=== PATIENT | female | born 1995 | race Asian ===

== ENCOUNTER 2019-03-15 16:59 | Inpatient (IN) | payer OTHER ==
[2019-03-15 17:39] LABS: Urine Appearance Clear; Urine Bacteria 1+ (Absent); Urine Bilirubin Negative (Negative); Urine Blood 2+ (Negative); Urine Color Straw; Urine Glucose Negative (Negative); Urine Ketones 1+ (Negative); Urine Nitrite Negative (Negative); Urine Protein Negative (Negative); Urine Red Blood Cell Trace(0-2/hpf) (Absent); Urine Specific Gravity 1.003 (1.010-1.030); Urine Squamous Epithelial Cell Present (Absent); Urine Urobilinogen Negative (Negative); Urine White Blood Cell Absent (Absent)
[2019-03-15 17:45] LABS: ABS Monocytes 0.4 10^3/ul (0-0.8); ABS Neutrophils 5.6 10^3/ul (1.5-7.7); Eosinophil % 0.4 %; Hematocrit 37 % (35-47); Hemoglobin 12.6 g/dL (12.0-16.0); Lymphocyte % 24.7 %; Mean Corpuscular HGB Conc 34 g/dL (31-36); Mean Corpuscular Hemoglobin 30 pg (27-31); Mean Corpuscular Volume 88 fL (80-97); Mean Platelet Volume 7.3 fL (7.4-10.4); Nucleated Red Blood Cells % 0.1; Platelet Count 291 10^3/uL (150-450); Red Cell Distribution Width 13 % (10-15); White Blood Count 8.1 10^3/uL (3.5-10.8)
--- NOTE | 2019-03-15 17:51 | ED ---
Psychiatric Complaint - HPI Summary HPI Summary: This pt is a 24 y/o female presenting to [facility] c/o worsening depression. Pt reports she has felt suicidal for the past 14 years. In the past she has had suicidal attempts by cutting her wrists, the last time was 3 weeks ago. She denies cutting today. Pt saw her therapist today and had a concern for her worsening depression and he referred her to the ED. Pt takes 20 mg prozac and hydroxyzine. Pt also notes she has hx of binging and purging. She states she has been seeing blood in her stools for many years, which was "more intense" on 03/09/19. Since then she notes she has been having diarrhea, dark to green in color. She has hx of IBS. Pt also saw her PCP and was concerned about her GI symptoms and thinks she may need another endoscopy in the future. Pt had an endoscopy a couple of years ago because her mother has hx of H. pylori and pt was having bloody stools then as well. Patient was told her abdomen looked inflamed. Father with bipolar and sister with depression and anxiety. - History Of Current Complaint Time Seen by Provider: 03/15/19 17:11 Hx Obtained From: Patient Onset/Duration: Lasting Days, Still Present Timing: Days Severity Currently: Moderate Character: Depressed Aggravating Factor(s): Nothing Alleviating Factor(s): Nothing Related History: Positive For: Prior Psychiatric Issues Has Suicidal: Reports: Thoughts, Has Prior Attempt(s). Denies: With A Plan Has Homicidal: Denies: Thoughts, With A Plan - Allergies/Home Medications Home Medications: Home Medications FLUoxetine CAP* [PROzac CAP*] 20 mg PO DAILY 03/15/19 [History Confirmed ] hydrOXYzine HCL TAB* [Atarax 10 MG TAB*] 10 mg PO BID PRN 03/15/19 [History Confirmed 03/15/19] PMH/Surg Hx/FS Hx/Imm Hx GI History: Reports: Hx Irritable Bowel Psychiatric History: Reports: Hx Eating Disorder - Binging and purging, Hx Depression Infectious Disease History: No Infectious Disease History: Denies: Traveled Outside the [place] in Last 30 Days - Family History Family History: Father with bipolar disorder. Sister with depression and anxiety. - Social History Alcohol Use: None Substance Use Type: Reports: None Smoking Status (MU): Never Smoked Tobacco Review of Systems Negative: Fever Gastrointestinal: Other - POSITIVE: bloody stools Psychological: Other - POSITIVE: SI Positive: Depressed. Negative: Other - NEGATIVE: HI All Other Systems Reviewed And Are Negative: Yes Physical Exam - Summary Physical Exam Summary: Constitutional: Well-developed, Well-nourished, Alert. (-) Distressed Skin: Warm, Dry HENT: Normocephalic; Atraumatic Eyes: Conjunctiva normal Neck: Musculoskeletal ROM normal neck. (-) JVD, (-) Stridor, (-) Nuchal rigidity Cardio: Rhythm regular, rate normal, Heart sounds normal; Intact distal pulses; Radial pulses are 2+ and symmetric. (-) Murmur Pulmonary/Chest wall: Effort normal. (-) Respiratory distress, (-) Wheezes, (-) Rales Abd: Soft, (-) tenderness, (-) Distension, (-) Guarding, (-) Rebound Musculoskeletal: (-) Edema Lymph: (-) Cervical adenopathy Neuro: Alert, Oriented x3 Psych: Positive SI Triage Information Reviewed: Yes Vital Signs On Initial Exam: Initial Vitals Temp Pulse Resp BP Pulse Ox 98.9 F 81 14 110/85 99 03/15/19 17:05 03/15/19 17:05 03/15/19 17:05 03/15/19 17:05 03/15/19 17:05 Vital Signs Reviewed: Yes Diagnostics - Vital Signs Vital Signs Temp Pulse Resp BP Pulse Ox 03/15/19 17:05 98.9 F 81 14 110/85 99 - Laboratory Lab Results: Lab Results 03/15/19 Range/Units 17:17 Urine Color Straw Urine Appearance Clear Urine pH 6.0 (5-9) Ur Specific Queen 1.003 L (1.010-1.030) Urine Protein Negative (Negative) Urine Ketones 1+ A (Negative) Urine Blood 2+ A (Negative) Urine Nitrate Negative (Negative) Urine Bilirubin Negative (Negative) Urine Urobilinogen Negative (Negative) Ur Leukocyte Esterase Negative (Negative) Urine WBC (Auto) Absent (Absent) Urine RBC (Auto) Trace(0-2/hpf) (Absent) Ur Squamous Epith Cells Present A (Absent) Urine Bacteria 1+ A (Absent) Urine Glucose Negative (Negative) Result Diagrams: 03/15/19 17:34 07/30/19 17:34 Lab Statement: Any lab studies that have been ordered have been reviewed, and results considered in the medical decision making process. - Radiology Chest XR Radiology Interpretation Completed By: Radiologist - IMPRESSION: No active cardiopulmonary disease. Dr. Rogers has reviewed this report. Re-Evaluation - Re-Evaluation First Eval Re-Evaluation Time: 18:11 Comment: Pt is medically cleared. 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 Pritchett, psychiatrist, with dx major depressive disorder. CXR added as patient had reported episode of blood tinged emesis after purging. Course/Dx - Course Course Of Treatment: 24 y/o F with depression as well as IBS presents for suicidal ideation. - Physical exam of the well-appearing female abdomen benign. Patient has a history of IBS with a endoscopy in the past, no worsening symptoms. Check hemoglobin, if stable patient will follow up with GI outpatient. - MHU to evaluate. - Differential Dx/Clinical Impression Provider Diagnosis: Major depressive disorder Discharge - Sign-Out/Discharge Documenting (check all that apply): Patient Departure - Admit to [facility] Patient Received Moderate/Deep Sedation with Procedure: No - Discharge Plan Condition: Stable Disposition: PSYCHIATRIC FACILITY[facility] Referrals: Evelin Antoine NP [Primary Care Provider] - - Billing Disposition and Condition Condition: STABLE Disposition: Psychiatric Facility [facility] - Attestation Statements Document Initiated by Tripp: Yes Documenting Scribe: Alida Jose Provider For Whom Radhaibluiza is Documenting (Include Credential): Isadora Rogers MD Scribe Attestation: Alida Plaza, scribed for Isadora Rogers MD on 03/15/19 at 2046. Scribe Documentation Reviewed: Yes Provider Attestation: The documentation as recorded by the Alida oconnell accurately reflects the service I personally performed and the decisions made by me, Isadora Rogers MD Status of Scribe Document: Viewed
[2019-03-15 17:58] LABS: Urine Benzodiazepine Screen None Detected (None Detect); Urine Opiates Screen None Detected (None Detect)
[2019-03-15 17:59] LABS: ALT 14 U/L (7-52); AST 19 U/L (13-39); Albumin 4.8 g/dL (3.2-5.2); Albumin/Globulin Ratio 1.8 (1-3); Alkaline Phosphatase 60 U/L (34-104); Anion Gap 8 mmol/L (2-11); BUN/Creatinine Ratio 13.4 (8-20); Blood Urea Nitrogen 9 mg/dL (6-24); CO2 Carbon Dioxide 25 mmol/L (22-32); Chloride 104 mmol/L (101-111); EGFR African American 130.8 (>60); EGFR Non-African American 108.1 (>60); Globulin 2.7 g/dL (2-4); Glucose 97 mg/dL (70-100); Potassium 4.4 mmol/L (3.5-5.0); Sodium 137 mmol/L (135-145); Total Protein 7.5 g/dL (6.4-8.9)
[2019-03-15 18:03] LABS: HCG Pregnancy 3.16 mIU/mL
[2019-03-15 18:19] LABS: Acetaminophen < 15 mcg/mL; Alcohol < 10 mg/dL (<10); Salicylate < 2.50 mg/dL (<30)
[2019-03-15 18:33] LABS: TSH (Thyroid Stimulating Horm) 2.51 mcIU/mL (0.34-5.60)
[2019-03-15] MEDS ORDERED: hydrOXYzine HCL TAB* 25 MG PO PRN (21:59)
[2019-03-15] MEDS ORDERED: Al Hydrox/Mg Hydrox/Simet LIQ* 30 ML UDC PO PRN (23:20)
[2019-03-16] MEDS: Acetaminophen TAB* 325 MG PO PRN ×2 (08:54→19:13)
[2019-03-16] MEDS: Multivitamins/Minerals TAB PO SCH (08:55)
[2019-03-16] MEDS ORDERED: FLUoxetine CAP* 20 MG PO SCH (09:00)
[2019-03-16] MEDS ORDERED: Pantoprazole TAB * 40 MG TAB PO SCH (09:00)
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
--- NOTE | 2019-03-16 14:38 | CONS ---
CC: Dr. Evelin Antoine; Dr. Amor * CONSULTATION REPORT: DATE OF CONSULT: 03/16/19 PRIMARY CARE PROVIDER: Dr. Evelin Antoine. PROVIDER REQUESTING THE CONSULT: Dr. Amor from Psychiatry. 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 She stated that in the past month, she forced herself to vomit approximately 6 times. Every time she does it, she has a little bit of blood at the end of vomitus. She also has had problems and was diagnosed 3 years ago with irritable bowel syndrome, and she stated that she presently has diarrhea approximately 3 times a day. In the past several days, she had "black diarrhea " that resolved couple of days ago. She also is right now having her period. She denies abdominal pain. She has no problems with eating right now. She is admitted to psychiatric unit for depression and suicidal ideation. The patient stated that approximately 3 years ago she had an upper endoscopy and was seen in gastroenterology consultation in the [facility]. At this point, upper endoscopy showed gastritis. She was also at that point diagnosed with possible irritable bowel syndrome, but she had no colonoscopy performed. Hospitalist consult was requested by Dr. Amor to evaluate for possibility of GI bleed. PAST MEDICAL HISTORY: 1. History of gastritis as mentioned above. 2. History of eating disorder with bingeing on food and then purging. 3. History of depression/anxiety. 4. History of suicidal ideation in the past and currently. MEDICATIONS: Currently include: 1. Acetaminophen on a p.r.n. basis. 2. Maalox on a p.r.n. basis. 3. Prozac 60 mg daily. 4. Hydroxyzine 25 mg every 6 hours p.r.n. 5. Multivitamin 1 tablet daily. 6. Protonix 40 mg daily. ALLERGIES: No known drug allergies. FAMILY HISTORY: Reviewed and noncontributory. SOCIAL HISTORY: The patient denies any tobacco, alcohol, or drug use. 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 She was not interested in naming a healthcare proxy or a surrogate. REVIEW OF SYSTEMS: Please see history of present illness. All the remaining 12 systems were reviewed with the patient and were, otherwise, negative. PHYSICAL EXAM: Blood pressure of 132/71, heart rate of 70 and regular, respiratory rate 16, oxygen saturation 99% on room air, temperature 99.0. General: The patient is a very pleasant 24-year-old female who is in no acute distress. Alert, awake, and oriented x3. HEENT: Head: Atraumatic, normocephalic. Eyes: Pupils are equal, reactive to light and accommodation. Oropharynx is clear. Mucosa moist. Neck: Supple. No JVD. No bruit bilaterally. Cardiovascular: Regular rate and rhythm. No murmur. Respiratory: Clear to auscultation bilaterally. Abdomen: Soft, nontender. Bowel sounds present in all 4 quadrants. Extremities: There is no edema. Pulses are +2 bilaterally. There is no clubbing, cyanosis. On neuro evaluation, speech clear. Cranial nerves II through XII grossly intact. Motor strength is 5/5 bilaterally. DIAGNOSTIC STUDIES/LAB DATA: Laboratory data obtained on 03/15/19 showed a white blood cell count of 5.1, hemoglobin of 12.6, hematocrit of 37, and platelets of 291. Sodium was 137, potassium 4.4, chloride 104, carbon dioxide 25, BUN 9, creatinine 0.67. Liver function tests unremarkable. TSH of 2.5. Beta hCG 3.1. Urinalysis showed low specific gravity of 1.003 with +1 ketones, trace blood. Portable chest x-ray obtained on admission, impression: "No active cardiopulmonary disease." ASSESSMENT AND PLAN: 1. In regards to the patient's possibility of gastrointestinal bleed. At this point, due to her ongoing menses, her stool occult will likely be positive and not sensitive enough. The patient's hemoglobin and hematocrit does not indicate ongoing bleed or anemia. At this point, I increased the patient's Protonix to twice a day for possibility of gastritis from purging, but I do not believe an urgent endoscopy during her hospital stay is necessary. Once her menses resolve and she still has symptoms of vomiting with blood or black stool , stool Hemoccult will be indicated. She also should have another CBC repeated in a couple of days to evaluate for stability and to monitor her hemoglobin level. In regards to the patient's history of diarrhea, likely due to irritable bowel syndrome, the patient never had a colonoscopy. She should be evaluated at outpatient gastroenterology's office for possibility of colonoscopy to fully diagnose irritable bowel syndrome, which I believe is a diagnosis of exclusion. 2. In regards to questions of possibility of esophageal stricture. The patient has had no symptoms of stricture of achalasia. She has no problems with swallowing and her oral intake at this point is reasonable. There is no indication for further testing. 3. In regards to the patient's suicidal ideation and depression. As per primary service. Thank you for allowing our service to see the patient in consultation. We will follow peripherally. TIME SPENT: Approximately 55 minutes were spent on consultation of this patient ; more than half this time was spent [id number] with the patient during the interview and physical exam. [id number]/[facility] #: [id number] TITI
[2019-03-16] MEDS: FLUoxetine CAP* 20 MG PO SCH (20:19)
[2019-03-16] MEDS: Pantoprazole TAB * 40 MG TAB PO SCH (20:20)
[2019-03-17 07:20] LABS: HDL Cholesterol 44.7 mg/dL
[2019-03-17 08:42] LABS: Free T4 0.75 ng/dL (0.61-1.12)
--- NOTE | 2019-03-17 10:41 | PN ---
Subjective - Subjective Date of Service: 03/17/19 Service Type: 73005 Hosp care 35 min high complexity Subjective: Nursing Report: Patient was visible on unit, no behavioral incidents. Slept overnight. Attending group activities. CC: "I have really low energy levels Patient was seen and evaluated today. Patient reported having binge eating behaviors > binge eating with purging or compensatory behaviors. She also complains of having diminished energy levels and trouble with concentration. The patient reported she feels safe on the unit and is interacting with peers. She reported having an adequate appetite and sleep. The patient reports attending and participating in day groups. Per nursing no behavioral issues or overnight events reported. Patient reported that she is tolerating medications without side effects. Objective - General Observations Appearance: Neat Appears Stated Age: Yes Stature: WNL Posture: WNL Eye Contact: Average Behavior/Activity: WNL - Interaction Observations Attitude Towards Examiner: Cooperative Stated Mood: Dysphoric Affect: Blunted Speech Pattern/Tone: Quiet Volume Thought Process: Coherent Perception: WNL Thought Content: Self-Deprecatory Thought Process: Lethality: Passive Wish Hallucination Type: None Delusion Type: None - Cognitive Function Orientation: A&O x 4 Level of Consciousness: Awake - Medication Compliance Cooperative with Inpatient Medication Regimen: Yes - Group Participation Participates in Group Activities: Yes Assessment - Assessment Merits Inpatient Hospitalization: For Immediate Safety Clinical Impression: 24 year old Female with history of depression and Bulimia Nervosa came to the hospital and was admitted to the BSU at [facility] upon expressing suicidal ideation. Plan - Plan Treatment Plan: Name: REDD BROOKS Birthdate: 1995 [id number] Plan # Q30 minute observation with staff pass # The patient requires psychiatric inpatient admission at this time to assure safety, receive treatment and work toward stabilization. #B-HCG was ordered and results are negative. # Obtain collateral information once release is signed. # Collaboration with Insurance Representative Analilia Porras # Medicine consult completed. # Monitor food intake #Continue prozac to 60mg po qhs. # Start vyvanse 10mg daily for binge eating disorder with decreased energy levels and concentration. Will monitor anxiety and appetite during course of treatment. 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 #Goals before discharge include: To eliminate/ reduce suicidal ideation Tentative Discharge: Pending psychiatric stabilization Continued Medication Management: Start Medication Medications: Current Medications Acetaminophen (Tylenol Tab*) 650 mg PO Q4H PRN PRN Reason: PAIN; OR TEMP >101 Last Admin: 03/16/19 19:13 Dose: 650 mg Al Hydrox/Mg Hydrox/Simethicone (Maalox Plus*) 30 ml PO Q4H PRN PRN Reason: INDIGESTION Fluoxetine HCl (Prozac Cap*) 60 mg PO 2100 [facility] Last Admin: 03/16/19 20:19 Dose: 60 mg Hydroxyzine HCl (Atarax Tab*) 25 mg PO Q6H PRN PRN Reason: ANXIETY Lisdexamfetamine Dimesylate (Vyvanse(Nf)) 10 mg PO DAILY [facility] Multivitamins/Minerals (Theragran/Minerals Tab*) 1 tab PO DAILY [facility] Last Admin: 03/16/19 08:55 Dose: 1 tab Pantoprazole Sodium (Protonix Tab*) 40 mg PO BID [facility] Last Admin: 03/16/19 20:20 Dose: 40 mg - Discharge Plan Discharge Plan: Inpatient Hospitalization Outpatient Program: Counseling/Psych Services at [employer]
[2019-03-17] MEDS: Pantoprazole TAB * 40 MG TAB PO SCH ×2 (10:56→19:24)
[2019-03-17] MEDS: Multivitamins/Minerals TAB PO SCH (10:56)
[2019-03-17] MEDS: Lisdexamfetamine(NF) 10 MG CAP PO SCH (10:58)
[2019-03-17] MEDS: Acetaminophen TAB* 325 MG PO PRN (19:23)
[2019-03-17] MEDS: FLUoxetine CAP* 20 MG PO SCH (19:24)
[2019-03-18] MEDS: Acetaminophen TAB* 325 MG PO PRN ×3 (05:04→21:19)
[2019-03-18 06:33] LABS: ABS Eosinophils 0.1 10^3/ul (0-0.6); ABS Lymphocytes 1.9 10^3/ul (1.0-4.8); ABS Monocytes 0.3 10^3/ul (0-0.8); ABS Neutrophils 4.8 10^3/ul (1.5-7.7); Eosinophil % 0.9 %; Hematocrit 33 % (35-47); Hemoglobin 11.7 g/dL (12.0-16.0); Lymphocyte % 26.2 %; Mean Corpuscular HGB Conc 35 g/dL (31-36); Mean Corpuscular Hemoglobin 31 pg (27-31); Mean Corpuscular Volume 88 fL (80-97); Mean Platelet Volume 7.4 fL (7.4-10.4); Nucleated Red Blood Cells % 0.1; Platelet Count 245 10^3/uL (150-450); Red Blood Count 3.74 10^6 /uL (3.70-4.87); Red Cell Distribution Width 13 % (10-15); White Blood Count 7.2 10^3/uL (3.5-10.8)
[2019-03-18] MEDS: Pantoprazole TAB * 40 MG TAB PO SCH ×2 (09:49→21:20)
[2019-03-18] MEDS: Multivitamins/Minerals TAB PO SCH (09:49)
[2019-03-18] MEDS: Lisdexamfetamine(NF) 10 MG CAP PO SCH (09:49)
--- NOTE | 2019-03-18 14:38 | PN ---
Subjective - Subjective Date of Service: 03/18/19 Service Type: 55649 Hosp care 35 min high complexity Subjective: Nursing Report: Patient was visible on unit, no behavioral incidents. Attending group activities. CC: "Alright Patient was seen and evaluated today. She reported having improved mood. She denied restricting her food intake. The patient reported she feels safe on the unit and is interacting with peers. She had a panic attack yesterday before taking vyvanse and did not relate it to the medication because it occurred before. The patient reports attending and participating in day groups. Per nursing no behavioral issues or overnight events reported. Patient reported that she is tolerating medications without side effects. Objective - General Observations Appearance: Neat Appears Stated Age: Yes Stature: Thin Posture: WNL Eye Contact: Average Behavior/Activity: WNL - Interaction Observations Attitude Towards Examiner: Anxious Stated Mood: Dysphoric Affect: Blunted Speech Pattern/Tone: Clear Thought Process: Coherent Perception: WNL Thought Content: Self-Deprecatory Thought Process: Lethality: Passive Wish Hallucination Type: None Delusion Type: None - Cognitive Function Orientation: A&O x 4 Level of Consciousness: Awake - Group Participation Participates in Group Activities: Yes Assessment - Assessment Merits Inpatient Hospitalization: For Immediate Safety Clinical Impression: 24 year old Female with history of depression and Bulimia Nervosa came to the hospital and was admitted to the BSU at [facility] upon expressing suicidal ideation. Plan - Plan Treatment Plan: Name: REDD BROOKS Birthdate: 1995 [id number] Plan # Q30 minute observation with staff pass and computer # The patient requires psychiatric inpatient admission at this time to assure safety, receive treatment and work toward stabilization. #B-HCG was ordered and results are negative. # Obtain collateral information once release is signed. # Collaboration with Congressional Aide Analilia Porras # Medicine consult completed. # Monitor food intake #Offer Eating disorder resources #Continue prozac to 60mg po qhs. # Start vyvanse 10mg daily for binge eating disorder with decreased energy levels and concentration. No signs of increased anxiety or diminished appetite during course of treatment. # Social support includes Rayna and Aníbal who are in the same PhD program at [place]. #Goals before discharge include: To eliminate/ reduce suicidal ideation Tentative Discharge: Pending psychiatric stabilization Sodium 137 mmol/L (135-145) 03/15/19 17:34 Potassium 4.4 mmol/L (3.5-5.0) 03/15/19 17:34 BUN 9 mg/dL (6-24) 03/15/19 17:34 Creatinine 0.67 mg/dL (0.51-0.95) 03/15/19 17:34 Hemoglobin A1c 5.2 % (4.0-5.6) 03/17/19 06:41 Calcium 10.0 mg/dL (8.6-10.3) 03/15/19 17:34 AST 19 U/L (13-39) 03/15/19 17:34 ALT 14 U/L (7-52) 03/15/19 17:34 Triglycerides 110 mg/dL 03/17/19 06:41 Cholesterol 202 mg/dL 03/17/19 06:41 LDL Cholesterol 135 mg/dL 03/17/19 06:41 Vital Signs Temp Pulse Resp BP Pulse Ox 98.7 F 65 16 102/65 100 03/18/19 08:00 03/18/19 08:00 03/18/19 08:00 03/18/19 08:00 03/18/19 08:00 Continued Medication Management: Continue Outpt Medication Medications: Current Medications Acetaminophen (Tylenol Tab*) 650 mg PO Q4H PRN PRN Reason: PAIN; OR TEMP >101 Last Admin: 03/18/19 09:48 Dose: 650 mg Al Hydrox/Mg Hydrox/Simethicone (Maalox Plus*) 30 ml PO Q4H PRN PRN Reason: INDIGESTION Fluoxetine HCl (Prozac Cap*) 60 mg PO 2100 [facility] Last Admin: 03/17/19 19:24 Dose: 60 mg Hydroxyzine HCl (Atarax Tab*) 25 mg PO Q6H PRN PRN Reason: ANXIETY Lisdexamfetamine Dimesylate (Vyvanse(Nf)) 10 mg PO DAILY [facility] Last Admin: 03/18/19 09:49 Dose: 10 mg Multivitamins/Minerals (Theragran/Minerals Tab*) 1 tab PO DAILY [facility] Last Admin: 03/18/19 09:49 Dose: 1 tab Pantoprazole Sodium (Protonix Tab*) 40 mg PO BID [facility] Last Admin: 03/18/19 09:49 Dose: 40 mg - Discharge Plan Discharge Plan: Inpatient Hospitalization
[2019-03-18] MEDS: FLUoxetine CAP* 20 MG PO SCH (21:21)
[2019-03-19] MEDS: Lisdexamfetamine(NF) 10 MG CAP PO SCH (08:57)
[2019-03-19] MEDS: Multivitamins/Minerals TAB PO SCH (08:57)
[2019-03-19] MEDS: Pantoprazole TAB * 40 MG TAB PO SCH ×2 (08:57→20:59)
--- NOTE | 2019-03-19 11:31 | PN ---
Subjective - Subjective Service Type: 15294 Hosp care 15 min low complexity Subjective: Mood reported as still swinging but at decreased frequency and decreased amplitude by about 20%, feels better able to control her mood swings. Sleeping good, waking up less frequently. Still feels guilty eating, but doing better when others prepare her meals. REports she sometimes "loses [her] mind" and binges. Reports her suicidal feeling is still feeling away, its existence attributed to low self-esteem. 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 Objective - General Observations Appearance: Well Groomed Appears Stated Age: Yes Stature: WNL Posture: WNL Eye Contact: Average Behavior/Activity: WNL - Interaction Observations Attitude Towards Examiner: Cooperative Stated Mood: Euthymic Affect: Full Speech Pattern/Tone: Clear Thought Process: Coherent Perception: WNL Thought Content: WNL Thought Process: Lethality: Passive Wish Hallucination Type: None Delusion Type: None - Cognitive Function Orientation: A&O x 4 Level of Consciousness: Awake, Alert, Appropriate Cognition: WNL Estimated Intelligence: Above Normal Insight: WNL Judgment Within Normal Limits: Yes - Medication Compliance Cooperative with Inpatient Medication Regimen: Yes - Group Participation Participates in Group Activities: Yes Assessment - Assessment Merits Inpatient Hospitalization: For Immediate Safety, For Stabilization Clinical Impression: 24 year old Female with history of depression and Bulimia Nervosa came to the hospital and was admitted to the BSU at [facility] upon expressing suicidal ideation. Plan - Plan Treatment Plan: Name: REDD BROOKS Birthdate: 1995 [id number] Plan # Q30 minute observation with staff pass and computer # The patient requires psychiatric inpatient admission at this time to assure safety, receive treatment and work toward stabilization. #B-HCG was ordered and results are negative. # Obtain collateral information once release is signed. # Collaboration with Pipe Organ Mechanic Apprentice Analilia Porras # Medicine consult completed. # Monitor food intake #Offer Eating disorder resources #Continue prozac to 60mg po qhs. # Start vyvanse 10mg daily for binge eating disorder with decreased energy levels and concentration. No signs of increased anxiety or diminished appetite during course of treatment. # Social support includes Rayna and Aníbal who are in the same PhD program at [place]. #Goals before discharge include: To eliminate/ reduce suicidal ideation Tentative Discharge: Pending psychiatric stabilization Sodium 137 mmol/L (135-145) 03/15/19 17:34 Potassium 4.4 mmol/L (3.5-5.0) 03/15/19 17:34 BUN 9 mg/dL (6-24) 03/15/19 17:34 Creatinine 0.67 mg/dL (0.51-0.95) 03/15/19 17:34 Hemoglobin A1c 5.2 % (4.0-5.6) 03/17/19 06:41 Calcium 10.0 mg/dL (8.6-10.3) 03/15/19 17:34 AST 19 U/L (13-39) 03/15/19 17:34 ALT 14 U/L (7-52) 03/15/19 17:34 Triglycerides 110 mg/dL 03/17/19 06:41 Cholesterol 202 mg/dL 03/17/19 06:41 LDL Cholesterol 135 mg/dL 03/17/19 06:41 Vital Signs Temp Pulse Resp BP Pulse Ox 98.7 F 65 16 102/65 100 03/18/19 08:00 03/18/19 08:00 03/18/19 08:00 03/18/19 08:00 03/18/19 08:00 Continued Medication Management: Continue Outpt Medication Medications: Current Medications Acetaminophen (Tylenol Tab*) 650 mg PO Q4H PRN PRN Reason: PAIN; OR TEMP >101 Last Admin: 03/18/19 21:19 Dose: 650 mg Al Hydrox/Mg Hydrox/Simethicone (Maalox Plus*) 30 ml PO Q4H PRN PRN Reason: INDIGESTION Fluoxetine HCl (Prozac Cap*) 60 mg PO 2100 [facility] Last Admin: 03/18/19 21:21 Dose: 60 mg Hydroxyzine HCl (Atarax Tab*) 25 mg PO Q6H PRN PRN Reason: ANXIETY Lisdexamfetamine Dimesylate (Vyvanse(Nf)) 10 mg PO DAILY [facility] Last Admin: 03/19/19 08:57 Dose: 10 mg Multivitamins/Minerals (Theragran/Minerals Tab*) 1 tab PO DAILY [facility] Last Admin: 03/19/19 08:57 Dose: 1 tab Pantoprazole Sodium (Protonix Tab*) 40 mg PO BID [facility] Last Admin: 08/03/19 08:57 Dose: 40 mg - Discharge Plan Discharge Plan: Outpatient Follow Up Outpatient Program: Counseling/Psych Services at [place]
[2019-03-19] MEDS: FLUoxetine CAP* 20 MG PO SCH (20:59)
[2019-03-20] MEDS: Pantoprazole TAB * 40 MG TAB PO SCH ×2 (09:06→21:31)
[2019-03-20] MEDS: Lisdexamfetamine(NF) 10 MG CAP PO SCH (09:06)
[2019-03-20] MEDS: Multivitamins/Minerals TAB PO SCH (09:06)
[2019-03-20] MEDS: FLUoxetine CAP* 20 MG PO SCH (21:30)
[2019-03-21] MEDS: Pantoprazole TAB * 40 MG TAB PO SCH ×2 (08:30→20:42)
[2019-03-21] MEDS: Lisdexamfetamine(NF) 10 MG CAP PO SCH (08:30)
[2019-03-21] MEDS: Multivitamins/Minerals TAB PO SCH (08:33)
--- NOTE | 2019-03-21 10:54 | PN ---
Subjective - Subjective Date of Service: 03/21/19 Service Type: [id number] Hosp care 35 min high complexity Subjective: Nursing Report: Patient was visible on unit, no behavioral incidents. Slept overnight. She is attending group activities. CC: "Fine Patient was seen and evaluated in the common room. The patient reported she feels safe on the unit and is interacting with peers. She reported no panic attacks over the weekend. She reported eating meals. She reported being fine with living in [place]. She feels that a eating disorder program is not necessary at this time. She reported having adequate appetite and sleep. The patient reports attending and participating in day groups. Per nursing no behavioral issues or overnight events reported. Patient reported that she is tolerating medications without side effects. Objective - General Observations Appearance: Neat Appears Stated Age: Yes Stature: WNL Posture: WNL Eye Contact: Average Behavior/Activity: WNL - Interaction Observations Attitude Towards Examiner: Cooperative Stated Mood: Dysphoric Affect: Blunted Speech Pattern/Tone: Clear Thought Process: Coherent Perception: WNL Thought Content: WNL Hallucination Type: None Delusion Type: None - Cognitive Function Orientation: A&O x 4 Level of Consciousness: Awake - Medication Compliance Cooperative with Inpatient Medication Regimen: Yes - Group Participation Participates in Group Activities: Yes Assessment - Assessment Merits Inpatient Hospitalization: For Immediate Safety Clinical Impression: 24 year old Female with history of depression and Bulimia Nervosa came to the hospital and was admitted to the BSU at [facility] upon expressing suicidal ideation. Plan - Plan Treatment Plan: Name: REDD BROOKS Birthdate: 1995 [id number] Plan # Q30 minute observation with staff pass and computer # The patient requires psychiatric inpatient admission at this time to assure safety, receive treatment and work toward stabilization. #B-HCG was ordered and results are negative. # Obtain collateral information once release is signed. # Collaboration with Counter Tender Analilia Porras # Medicine consult completed. # Monitor food intake #She declined eating disorder resources #Continue prozac to 60mg po qhs. # Continue vyvanse 10mg daily for binge eating disorder with decreased energy levels and concentration. No signs of increased anxiety or diminished appetite during course of treatment. # Social support includes Rayna and Aníbal who are in the same PhD program at [place]. #Goals before discharge include: To eliminate/ reduce suicidal ideation Tentative Discharge: Tomorrow or Thursday Sodium 137 mmol/L (135-145) 03/15/19 17:34 Potassium 4.4 mmol/L (3.5-5.0) 03/15/19 17:34 BUN 9 mg/dL (6-24) 03/15/19 17:34 Creatinine 0.67 mg/dL (0.51-0.95) 03/15/19 17:34 Hemoglobin A1c 5.2 % (4.0-5.6) 03/17/19 06:41 Calcium 10.0 mg/dL (8.6-10.3) 03/15/19 17:34 AST 19 U/L (13-39) 03/15/19 17:34 ALT 14 U/L (7-52) 03/15/19 17:34 Triglycerides 110 mg/dL 03/17/19 06:41 Cholesterol 202 mg/dL 03/17/19 06:41 LDL Cholesterol 135 mg/dL 03/17/19 06:41 Vital Signs Temp Pulse Resp BP Pulse Ox 98 F 76 16 115/73 96 03/21/19 08:00 03/21/19 08:00 03/21/19 13:34 03/21/19 08:00 03/21/19 08:00 Continued Medication Management: Continue Outpt Medication Medications: Current Medications Acetaminophen (Tylenol Tab*) 650 mg PO Q4H PRN PRN Reason: PAIN; OR TEMP >101 Last Admin: 03/18/19 21:19 Dose: 650 mg Al Hydrox/Mg Hydrox/Simethicone (Maalox Plus*) 30 ml PO Q4H PRN PRN Reason: INDIGESTION Fluoxetine HCl (Prozac Cap*) 60 mg PO 2100 [facility] Last Admin: 03/20/19 21:30 Dose: 60 mg Hydroxyzine HCl (Atarax Tab*) 25 mg PO Q6H PRN PRN Reason: ANXIETY Lisdexamfetamine Dimesylate (Vyvanse(Nf)) 10 mg PO DAILY [facility] Last Admin: 03/21/19 08:30 Dose: 10 mg Multivitamins/Minerals (Theragran/Minerals Tab*) 1 tab PO DAILY [facility] Last Admin: 03/21/19 08:33 Dose: 1 tab Pantoprazole Sodium (Protonix Tab*) 40 mg PO BID [facility] Last Admin: 03/21/19 08:30 Dose: 40 mg - Discharge Plan Discharge Plan: Inpatient Hospitalization
[2019-03-21] MEDS: FLUoxetine CAP* 20 MG PO SCH (20:42)
[2019-03-22] MEDS: Multivitamins/Minerals TAB PO SCH (09:07)
[2019-03-22] MEDS: Lisdexamfetamine(NF) 10 MG CAP PO SCH (09:07)
[2019-03-22] MEDS: Pantoprazole TAB * 40 MG TAB PO SCH ×2 (09:07→20:49)
--- NOTE | 2019-03-22 11:32 | PN ---
Subjective - Subjective Date of Service: 03/22/19 Service Type: [id number] Hosp care 35 min high complexity Subjective: Nursing Report: Patient was visible on unit, no behavioral incidents. Slept overnight. She is attending group activities. CC: "Okay Patient was seen and evaluated in the common room. The patient reported she feels safe on the unit and is interacting with peers. She reported no increased anxiety or diminished appetite from medication. She reported eating meals. She reported being fine with living in [place] and declined wanting to enroll into a eating disorder clinic. She reported having adequate appetite and sleep. The patient reports attending and participating in day groups. Per nursing no behavioral issues or overnight events reported. Patient reported that she is tolerating medications without side effects. Objective - General Observations Appearance: Neat Appears Stated Age: Yes Stature: WNL Posture: WNL Eye Contact: Average Behavior/Activity: WNL - Interaction Observations Attitude Towards Examiner: Cooperative Stated Mood: Euthymic Affect: Blunted Speech Pattern/Tone: Clear Thought Process: Coherent Perception: WNL Thought Content: WNL Hallucination Type: None Delusion Type: None - Cognitive Function Orientation: A&O x 4 Level of Consciousness: Awake - Medication Compliance Cooperative with Inpatient Medication Regimen: Yes - Group Participation Participates in Group Activities: Yes Assessment - Assessment Merits Inpatient Hospitalization: For Immediate Safety Clinical Impression: 24 year old Female with history of depression and Bulimia Nervosa came to the hospital and was admitted to the BSU at [facility] upon expressing suicidal ideation. Plan - Plan Treatment Plan: Name: REDD BROOKS Birthdate: 1995 [id number] Plan # Q30 minute observation with staff pass and computer # The patient requires psychiatric inpatient admission at this time to assure safety, receive treatment and work toward stabilization. #B-HCG was ordered and results are negative. # Obtain collateral information once release is signed. # Collaboration with Inspector Advanced Composite Analilia Porras # Medicine consult completed. # Monitor food intake #She declined eating disorder resources #Continue prozac to 60mg po qhs. # Continue vyvanse 10mg daily for binge eating disorder with decreased energy levels and concentration. No signs of increased anxiety or diminished appetite during course of treatment. # Social support includes Rayna and Aníbal who are in the same PhD program at [place]. #Goals before discharge include: To eliminate/ reduce suicidal ideation Tentative Discharge: Tomorrow or Thursday Sodium 137 mmol/L (135-145) 03/15/19 17:34 Potassium 4.4 mmol/L (3.5-5.0) 03/15/19 17:34 BUN 9 mg/dL (6-24) 03/15/19 17:34 Creatinine 0.67 mg/dL (0.51-0.95) 03/15/19 17:34 Hemoglobin A1c 5.2 % (4.0-5.6) 03/17/19 06:41 Calcium 10.0 mg/dL (8.6-10.3) 03/15/19 17:34 AST 19 U/L (13-39) 03/15/19 17:34 ALT 14 U/L (7-52) 03/15/19 17:34 Triglycerides 110 mg/dL 03/17/19 06:41 Cholesterol 202 mg/dL 03/17/19 06:41 LDL Cholesterol 135 mg/dL 03/17/19 06:41 Vital Signs Temp Pulse Resp BP Pulse Ox 98 F 76 16 115/73 96 03/21/19 08:00 03/21/19 08:00 03/21/19 13:34 03/21/19 08:00 03/21/19 08:00 Continued Medication Management: Continue Outpt Medication Medications: Current Medications Acetaminophen (Tylenol Tab*) 650 mg PO Q4H PRN PRN Reason: PAIN; OR TEMP >101 Last Admin: 03/18/19 21:19 Dose: 650 mg Al Hydrox/Mg Hydrox/Simethicone (Maalox Plus*) 30 ml PO Q4H PRN PRN Reason: INDIGESTION Fluoxetine HCl (Prozac Cap*) 60 mg PO 2100 [facility] Last Admin: 03/21/19 20:42 Dose: 60 mg Hydroxyzine HCl (Atarax Tab*) 25 mg PO Q6H PRN PRN Reason: ANXIETY Lisdexamfetamine Dimesylate (Vyvanse(Nf)) 10 mg PO DAILY [facility] Last Admin: 03/22/19 09:07 Dose: 10 mg Multivitamins/Minerals (Theragran/Minerals Tab*) 1 tab PO DAILY [facility] Last Admin: 03/22/19 09:07 Dose: 1 tab Pantoprazole Sodium (Protonix Tab*) 40 mg PO BID [facility] Last Admin: 03/22/19 09:07 Dose: 40 mg - Discharge Plan Discharge Plan: Inpatient Hospitalization Outpatient Program: Counseling/Psych Services at [place]
[2019-03-22] MEDS: FLUoxetine CAP* 20 MG PO SCH (20:49)
[2019-03-23 08:48] VITALS: BP 106/69
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
[2019-03-23] MEDS: Pantoprazole TAB * 40 MG TAB PO SCH (09:04)
[2019-03-23] MEDS: Lisdexamfetamine(NF) 10 MG CAP PO SCH (09:04)
[2019-03-23] MEDS: Multivitamins/Minerals TAB PO SCH (09:04)
[2019-03-23] MEDS: Acetaminophen TAB* 325 MG PO PRN (09:04)
== END 2019-03-23 14:38 | disposition home or self-care (01) | DRG 881 ==
LOC: ED 16:59 → BSU 20:04
PROVIDERS: ADMIT Psychiatry & Neurology Psychiatry; ATTEND Psychiatry & Neurology Psychiatry
DX: F32.9 Major depressive disorder, single episode, unspecified (principal); R45.851 Suicidal ideations; F50.2 Bulimia nervosa; Z62.810 Personal history of physical and sexual abuse in childhood; E03.9 Hypothyroidism, unspecified; F43.10 Post-traumatic stress disorder, unspecified; F41.9 Anxiety disorder, unspecified; K58.0 Irritable bowel syndrome with diarrhea; Z68.23 Body mass index [BMI] 23.0-23.9, adult; Z91.5 Personal history of self-harm
CPT/HCPCS: 36415; 71046; 80053; 80061; 80307; 80320; 80329; 81003; 81015; 83036; 84439; 84443; 84702; 85025; 87086; 93005; 99222; 99231; 99233; 99238; 99284; A9270-GY; G0480